=== PATIENT | female | born 1950 | race African-American/Black ===

== ENCOUNTER 2017-08-19 16:05 | Emergency (ER) | payer MEDICARE, OTHER ==
[2017-08-19 16:13] VITALS: BP 157/79
--- NOTE | 2017-08-19 16:24 | ER Document Report ---
ED Cardiac - General Chief Complaint: Chest Pain Stated Complaint: CHEST PAIN Time Seen by Provider: 08/19/17 16:24 Mode of Arrival: Ambulatory Information source: Patient TRAVEL OUTSIDE OF THE [place] IN LAST 30 DAYS: No - HPI Patient complains to provider of: Chest pain Was the onset of pain: Sudden When did pain begin: YESTERDAY, WORSE TODAY Is the pain a: New problem Chest pain location: Substernal Quality of pain: Burning, Other - "LIKE HEARTBURN" Severity now: Mild Severity at worst: Moderate Chest pain precipitating factors: STANDING IN KITCHEN Cardiac risk factors: Hx PA Positive cardiac history: Yes Similar symptoms previously: Yes - W/ PRIOR M.I. Recently seen / treated by doctor: No - Related Data Allergies/Adverse Reactions: No Known Allergies Allergy (Verified 08/19/17 16:12) Past Medical History - General Information source: Patient - Social History Smoking Status: Former Smoker Cigarette use (# per day): No Chew tobacco use (# tins/day): No Frequency of alcohol use: None Drug Abuse: None Lives with: Alone Family History: CAD Patient has suicidal ideation: No Patient has homicidal ideation: No - Past Medical History Cardiac Medical History: Reports: Hx Coronary Artery Disease, Hx Hypercholesterolemia Pulmonary Medical History: Reports: None EENT Medical History: Reports: None Neurological Medical History: Reports: None Endocrine Medical History: Reports: None Renal/ Medical History: Reports: None. Denies: Hx Peritoneal Dialysis Malignancy Medical History: Reports: None GI Medical History: Reports: None Musculoskeltal Medical History: Reports None Psychiatric Medical History: Reports: None Past Surgical History: Reports: Hx Cardiac Catheterization - Immunizations Hx Diphtheria, Pertussis, Tetanus Vaccination: Yes Review of Systems - Review of Systems Constitutional: No symptoms reported. denies: Diaphoresis, Fever EENT: No symptoms reported Cardiovascular: See HPI Respiratory: No symptoms reported. denies: Short of breath Gastrointestinal: No symptoms reported. denies: Nausea Female Genitourinary: Post menopausal Musculoskeletal: No symptoms reported Skin: No symptoms reported Neurological/Psychological: No symptoms reported Physical Exam - Vital signs Vitals: Temp Pulse Resp BP Pulse Ox 97.8 F 81 20 157/79 H 98 08/19/17 16:12 08/19/17 16:12 08/19/17 16:12 08/19/17 16:12 08/19/17 16:12 Interpretation: Hypertensive. No: Tachycardic, Hypoxic, Tachypneic - General General appearance: Appears well, Alert In distress: None - HEENT Head: Normocephalic Eyes: Normal Conjunctiva: Normal Ears: Normal Nasal: Normal Mouth/Lips: Normal Mucous membranes: Normal - Respiratory Respiratory status: No respiratory distress - Cardiovascular Rhythm: Regular - Abdominal Distension: No distension - Extremities General upper extremity: Normal inspection General lower extremity: Normal inspection. No: Tender, Edema - Neurological Neuro grossly intact: Yes Cognition: Normal Orientation: AAOx4 - Psychological Associated symptoms: Normal affect, Normal mood - Skin Skin Temperature: Warm Skin Moisture: Dry Skin Color: Normal Skin Turgor: Elastic Course - Re-evaluation Re-evalutation: 08/19/17 18:05 Shortly after her arrival to the treatment area, the patient declared that she could not wait any longer due to impending darkness and wished to leave [facility]. She was persuaded to stay for the preliminary workup, including one EKG and one set of cardiac enzymes and chest x-ray. Results of this workup were discussed, patient was strongly advised to stay for the complete evaluation but she was adamant in her desire to leave. She was told that her pain might be pre- infarction pain and that she might have a serious or fatal outcome without proper evaluation and treatment. She verbalizes understanding and is adamant in her insistence to leave. - Vital Signs Vital signs: Temp Pulse Resp BP Pulse Ox 97.8 F 81 16 157/79 H 98 08/19/17 16:12 08/19/17 16:12 08/19/17 16:48 08/19/17 16:12 08/19/17 16:12 - Laboratory Result Diagrams: 08/19/17 16:53 08/19/17 16:53 Laboratory results interpreted by me: 08/19/17 16:53 Est GFR (Non-Af Amer) 53 L Creatine Kinase 168 H - Diagnostic Test Radiology reviewed: Image reviewed, Reports reviewed - EKG Interpretation by Me EKG shows normal: Sinus rhythm, [place], Intervals, QRS Complexes, ST-T Waves Rate: Normal Rhythm: NSR P Waves: LAE Discharge - Discharge Clinical Impression: Chest pain of uncertain etiology Condition: Stable Disposition: HOME, SELF-CARE Instructions: Chest Pain of Unclear Cause ([facility]) Additional Instructions: Your evaluation in the emergency department today was incomplete. Your EKG and your first set of cardiac enzymes showed no evidence of heart damage. Your chest x-ray was normal. At this time we cannot be sure that your chest pain is not heart related. You should follow-up with your primary care provider at the earliest possible opportunity. Continue your usual medications. Please return promptly to the emergency department should you get worse in any way, any time.
[2017-08-19] MEDS ORDERED: ASPIRIN 81 MG TABLET, CHEWABLE PO ONE (16:26)
[2017-08-19] MEDS ORDERED: NITROGLYCERIN 0.4 MG/TAB 25 TAB/BOTTLE SL PRN (16:39)
[2017-08-19 17:19] LABS: ABSOLUTE EOSINOPHILS # (AUTO) 0.1 10^3/uL (0.0-0.6); ABSOLUTE LYMPHOCYTES (AUTO) 2.1 10^3/uL (0.5-4.7); ABSOLUTE MONOCYTES (AUTO) 0.7 10^3/uL (0.1-1.4); ABSOLUTE NEUT (AUTO) 3.6 10^3/uL (1.7-8.2); BASOPHILS % (AUTO) 0.5 % (0-2); HEMATOCRIT 42.7 % (36.0-47.0); HGB HCT DIFFERENCE -0.7; LYMPHOCYTES % (AUTO) 32.8 % (13-45); MEAN CORPUSCULAR HEMOGLOBIN 27.8 pg (27.0-33.4); MEAN CORPUSCULAR HGB CONC 32.9 g/dL (32.0-36.0); MEAN CORPUSCULAR VOLUME 85 fl (80-97); MONOCYTES % (AUTO) 10.2 % (3-13); RED BLOOD COUNT 5.05 10^6/uL (3.72-5.28); SEGMENTED NEUTROPHILS % (AUTO) 55.5 % (42-78); WHITE BLOOD COUNT 6.5 10^3/uL (4.0-10.5)
[2017-08-19 17:41] LABS: ALANINE AMINOTRANSFERASE 33 U/L (9-52); ALBUMIN 4.1 g/dL (3.5-5.0); ALKALINE PHOSPHATASE 102 U/L (38-126); ANION GAP 11 (5-19); ASPARTATE AMINO TRANSFERASE 25 U/L (14-36); BILIRUBIN,DIRECT 0.2 mg/dL (0.0-0.4); BILIRUBIN,TOTAL 0.5 mg/dL (0.2-1.3); BLOOD UREA NITROGEN 16 mg/dL (7-20); CALCIUM 9.6 mg/dL (8.4-10.2); CARBON DIOXIDE 26 mmol/L (22-30); CHLORIDE 107 mmol/L (98-107); CREATINE KINASE 168 U/L (30-135); CREATININE RESULT 1.04 mg/dL (0.52-1.25); GLUCOSE 80 mg/dL (75-110); POTASSIUM 4.1 mmol/L (3.6-5.0); SODIUM 144.2 mmol/L (137-145)
[2017-08-19 17:50] LABS: CREATINE KINASE MB 1.84 ng/mL (<4.55); TROPONIN I < 0.012 ng/mL
--- NOTE | 2017-08-19 17:53 | RADIOLOGY REPORT (SQ) ---
EXAM DESCRIPTION: CHEST SINGLE VIEW COMPLETED DATE/TIME: 08/19/2017 4:55 pm REASON FOR STUDY: CHEST PAIN COMPARISON: 2013. NUMBER OF VIEWS: One view. TECHNIQUE: Single frontal radiographic view of the chest acquired. LIMITATIONS: None. FINDINGS: LUNGS AND PLEURA: No opacities, masses or pneumothorax. No pleural effusion. MEDIASTINUM AND HILAR STRUCTURES: No masses. Contour normal. HEART AND VASCULAR STRUCTURES: Heart normal in size. Normal vasculature. BONES: No acute findings. HARDWARE: None in the chest. OTHER: No other significant finding. IMPRESSION: NO SIGNIFICANT RADIOGRAPHIC FINDING IN THE CHEST. TECHNICAL DOCUMENTATION: JOB ID: [id number] [employer]- All Rights Reserved
--- NOTE | 2017-08-19 19:49 | EKG REPORT ---
SEVERITY:- BORDERLINE ECG - SINUS RHYTHM PROBABLE LEFT ATRIAL ABNORMALITY CONSIDER OLD ANTEROSEPTAL MA. : Confirmed by: Dc Quezada MD 19-Aug-2017 19:49:05
== END 2017-08-19 18:05 | disposition home or self-care (01) ==
LOC: ER 16:05
DX: R07.9 Chest pain, unspecified (principal); Z87.891 Personal history of nicotine dependence
CPT/HCPCS: 93005; 99285; 36415; 82553; 82550; 85025; 80053; 84484; 71010; 93010; A9270

== ENCOUNTER 2019-01-01 15:07 | Emergency (ER) | payer MEDICARE, OTHER ==
--- NOTE | 2019-01-01 16:37 | ER Document Report ---
ED Medical Screen (RME) - General Chief Complaint: Chest Pain Stated Complaint: CHEST PAIN Time Seen by Provider: 01/01/19 16:20 Notes: Patient is a 68-year-old female with history of CAD and 2 stents that presents to the emergency department for chief complaint of chest pain. Patient reports she is been having this pain for a few days now, and was advised by her poem writer to come to the ED to be evaluated. ROS: Other than noted above, the 12 point review of systems was reviewed with the patient and were negative, all pertinent findings are included in the HPI. PHYSICAL EXAMINATION: Vital signs reviewed. GENERAL: Well-appearing, well-nourished and in no acute distress. HEAD: Atraumatic, normocephalic. EYES: Pupils equal round extraocular movements intact, conjunctiva are normal. ENT: Nares patent NECK: Normal range of motion CV: Heart regular rate and rhythm LUNGS: No respiratory distress Musculoskeletal: Normal range of motion NEUROLOGICAL: Normal speech PSYCH: Normal mood, normal affect. MDM: Patient seen and examined for rapid initial assessment. Vital signs reviewed. A comprehensive ED assessment and evaluation of the patient, analysis of test results and completion of the medical decision making process will be conducted by additional ED providers. *Note is created using voice recognition software and may contain spelling, syntax or grammatical errors. TRAVEL OUTSIDE OF THE [place] IN LAST 30 DAYS: No - Related Data Allergies/Adverse Reactions: No Known Allergies Allergy (Verified 01/01/19 16:25) Past Medical History - Social History Chew tobacco use (# tins/day): No Drug Abuse: None - Past Medical History Cardiac Medical History: Reports: Hx Coronary Artery Disease, Hx Heart Attack - x2, Hx Hypercholesterolemia Renal/ Medical History: Denies: Hx Peritoneal Dialysis Past Surgical History: Reports: Hx Cardiac Catheterization - stents x2 - Immunizations Hx Diphtheria, Pertussis, Tetanus Vaccination: Yes Physical Exam - Vital signs Vitals: Temp Pulse Resp BP Pulse Ox 98.0 F 85 18 149/69 H 99 01/01/19 15:18 01/01/19 15:18 01/01/19 15:18 01/01/19 15:18 01/01/19 15:18 Course - Vital Signs Vital signs: Temp Pulse Resp BP Pulse Ox 98.0 F 85 18 149/69 H 99 01/01/19 15:18 01/01/19 15:18 01/01/19 15:18 01/01/19 15:18 01/01/19 15:18
--- NOTE | 2019-01-01 17:05 | RADIOLOGY REPORT (SQ) ---
EXAM DESCRIPTION: CHEST SINGLE VIEW COMPLETED DATE/TIME: 01/01/2019 4:45 pm REASON FOR STUDY: chest pain COMPARISON: AP chest 01/14/2014 EXAM PARAMETERS: NUMBER OF VIEWS: One view. TECHNIQUE: Single frontal radiographic view of the chest acquired. RADIATION DOSE: NA LIMITATIONS: None. FINDINGS: LUNGS AND PLEURA: No opacities, masses or pneumothorax. No pleural effusion. MEDIASTINUM AND HILAR STRUCTURES: No masses. Contour normal. HEART AND VASCULAR STRUCTURES: No cardiomegaly. Faintly radiopaque stent along left heart border BONES: No acute findings. HARDWARE: None in the chest. OTHER: No other significant finding. IMPRESSION: Left coronary stent. Otherwise unremarkable TECHNICAL DOCUMENTATION: JOB ID: [id number] [employer]- All Rights Reserved Reading location - IP/workstation name: [email or web address]
[2019-01-01 17:17] LABS: ABSOLUTE BASOPHILS # (AUTO) 0.1 10^3/uL (0.0-0.2); ABSOLUTE LYMPHOCYTES (AUTO) 2.2 10^3/uL (0.5-4.7); ABSOLUTE MONOCYTES (AUTO) 0.8 10^3/uL (0.1-1.4); ABSOLUTE NEUT (AUTO) 6.6 10^3/uL (1.7-8.2); BASOPHILS % (AUTO) 0.6 % (0-2); EOSINOPHILS % (AUTO) 0.4 % (0-6); HEMATOCRIT 44.9 % (36.0-47.0); HEMOGLOBIN 14.6 g/dL (12.0-15.5); MEAN CORPUSCULAR HEMOGLOBIN 27.9 pg (27.0-33.4); MEAN CORPUSCULAR HGB CONC 32.4 g/dL (32.0-36.0); MEAN CORPUSCULAR VOLUME 86 fl (80-97); MONOCYTES % (AUTO) 8.1 % (3-13); PLATELET COUNT 210 10^3/uL (150-450); RED BLOOD COUNT 5.23 10^6/uL (3.72-5.28); RED CELL DISTRIBUTION WIDTH 14.7 % (11.5-14.0); SEGMENTED NEUTROPHILS % (AUTO) 67.9 % (42-78); TOTAL CELLS COUNTED % (AUTO) 100 %; WHITE BLOOD COUNT 9.7 10^3/uL (4.0-10.5)
[2019-01-01 17:30] LABS: ALANINE AMINOTRANSFERASE 51 U/L (9-52); ALBUMIN 4.2 g/dL (3.5-5.0); ALKALINE PHOSPHATASE 107 U/L (38-126); ANION GAP 8 (5-19); ASPARTATE AMINO TRANSFERASE 45 U/L (14-36); BILIRUBIN,DIRECT 0.3 mg/dL (0.0-0.4); BILIRUBIN,TOTAL 0.6 mg/dL (0.2-1.3); BLOOD UREA NITROGEN 27 mg/dL (7-20); CALCIUM 10.2 mg/dL (8.4-10.2); CARBON DIOXIDE 28 mmol/L (22-30); CHLORIDE 103 mmol/L (98-107); GLUCOSE 97 mg/dL (75-110); POTASSIUM 4.9 mmol/L (3.6-5.0); SODIUM 138.9 mmol/L (137-145)
--- NOTE | 2019-01-01 17:57 | ER Document Report ---
ED General - General Chief Complaint: Chest Pain Stated Complaint: CHEST PAIN Time Seen by Provider: 01/01/19 16:20 Primary Care Provider: DAMIEN PIERRE DO [Primary Care Provider] - Follow up as needed TRAVEL OUTSIDE OF THE [place] IN LAST 30 DAYS: No - HPI Notes: Patient presents to the emergency department for evaluation of chest pain. She states is been present intermittently over the last several days. She suspected initially that it was just heartburn. She states is been worse at night, worse after eating. Today she had it without eating and became concerned. The pain is in the lower substernal region. It does not radiate. She denies any associated dyspnea, nausea, diaphoresis, near syncope. She states it is similar to anginal pain she has had in the past. The patient does follow with cardiology after her PA several years ago. She states that she had a normal stress test in 2017. She last saw her special skills officer in August. When she does get this pain that lasts only a few minutes. Nothing seems to make it go away, it is definitely not exertional. - Related Data Allergies/Adverse Reactions: No Known Allergies Allergy (Verified 01/01/19 16:25) Past Medical History - General Information source: Patient - States she uses a [id number] vape - Social History Smoking Status: Current Every Day Smoker Chew tobacco use (# tins/day): No Drug Abuse: None Family History: CAD Patient has suicidal ideation: No Patient has homicidal ideation: No - Past Medical History Cardiac Medical History: Reports: Hx Coronary Artery Disease, Hx Heart Attack - x2, Hx Hypercholesterolemia Renal/ Medical History: Denies: Hx Peritoneal Dialysis Past Surgical History: Reports: Hx Cardiac Catheterization - stents x2 - Immunizations Hx Diphtheria, Pertussis, Tetanus Vaccination: Yes Review of Systems - Review of Systems Constitutional: No symptoms reported EENT: No symptoms reported Cardiovascular: See HPI Respiratory: No symptoms reported Gastrointestinal: See HPI Genitourinary: No symptoms reported Musculoskeletal: No symptoms reported Skin: No symptoms reported Neurological/Psychological: No symptoms reported Physical Exam - Vital signs Vitals: Temp Pulse Resp BP Pulse Ox 98.0 F 85 18 149/69 H 99 01/01/19 15:18 01/01/19 15:18 01/01/19 15:18 01/01/19 15:18 01/01/19 15:18 - Notes Notes: Vital signs reviewed, please refer to chart. Patient is normocephalic, atraumatic. Pupils equal round, reactive to light. Neck is supple without me ningismus. Heart is regular rate and rhythm. Lungs are clear to auscultation bilaterally. Abdomen is soft, nontender, normoactive bowel sounds throughout. Extremities without cyanosis, clubbing, edema. Posterior calf tenderness. Peripheral pulses are equal. Skin is warm and dry. Patient is awake, alert, neurological exam is nonfocal. Course - Re-evaluation Re-evalutation: 01/01/19 17:56 Patient presents to the emergency department for evaluation. She describes the pain that she states feels like her indigestion. It was worsened by food. She does state it is similar to anginal pain she has had in the past. She had laboratory investigations, imaging, EKG as ordered by the physician in triage. Patient is pain-free at the time of my evaluation. Her EKG reveals no acute ST changes and no significant change when compared to prior study of 2017. Laboratory investigations are unremarkable. Will discuss ordering a delta troponin with the patient. 01/01/19 18:34 I was notified by nursing that the patient was very unhappy with the length of her weight. It has been explained to her that a second troponin would be beneficial in ruling out a cardiac etiology to her pain. The patient became very belligerent and slightly verbally abusive. She stated that she had "wasted her time" and refused to stay. I did explain to her that I could not rule out a cardiac etiology based on the work that have been performed thus far. I strongly encouraged her to stay. She refused to do so. She stated she would sign AMA papers but refused to wait for any sort of discharge paperwork. She is strongly encouraged to follow-up with her special skills officer. - Vital Signs Vital signs: Temp Pulse Resp BP Pulse Ox 98.0 F 85 22 H 133/79 H 98 01/01/19 15:18 01/01/19 15:18 01/01/19 17:31 01/01/19 17:31 01/01/19 17:37 - Laboratory Result Diagrams: 01/01/19 17:01 01/01/19 17:01 Laboratory results interpreted by me: 01/01/19 01/01/19 17:01 17:01 RDW 14.7 H BUN 27 H Est GFR ( Amer) 58 L Est GFR (Non-Af Amer) 48 L AST 45 H - Diagnostic Test Radiology reviewed: Reports reviewed - No acute cardiopulmonary disease - EKG Interpretation by Me Additional EKG results interpreted by me: 01/01/19 17:57 Sinus mechanism with a rate of 73 bpm. Normal axis and intervals, no acute ST changes concerning for ischemia or infarction. This is unchanged when compared to prior study of August 19, 2017. Discharge - Discharge Clinical Impression: Chest pain, Leaving AGAINST MEDICAL ADVICE Disposition: AGAINST MEDICAL ADVICE Instructions: Chest Pain of Unclear Cause ([facility]) Additional Instructions: You have refused to stay for second blood draw. You can return to the emergency department at any time should you change your mind. Follow-up with your special skills officer as soon as possible. Return to the emergency department with worsening or new concerning symptoms. Referrals: DAMIEN PIERRE, DO [Primary Care Provider] - Follow up as needed
[2019-01-01 18:40] VITALS: BP 140/72
--- NOTE | 2019-01-01 21:22 | EKG REPORT ---
SEVERITY:- BORDERLINE ECG - SINUS RHYTHM PROBABLE LEFT ATRIAL ABNORMALITY : Confirmed by: Silva Kohler MD 01-Jan-2019 21:22:01
== END 2019-01-01 18:39 | disposition left against medical advice (07) ==
LOC: ER 15:07
DX: R07.2 Precordial pain (principal); I25.10 Atherosclerotic heart disease of native coronary artery without angina pectoris; I25.2 Old myocardial infarction; Z95.5 Presence of coronary angioplasty implant and graft; Z53.29 Procedure and treatment not carried out because of patient's decision for other reasons
CPT/HCPCS: 36415; 71045; 80053; 84484; 85025; 93005; 93010; 99284